=== PATIENT | female | born 2000 | race Two or more races ===

== ENCOUNTER 2024-01-03 10:58 | Emergency (ER) | payer OTHER ==
[~2024-01-03] VITALS: Ht 177.8 cm; Wt 81.2 kg
[~2024-01-03 10:58] MED LIST: NABUMETONE500 MG PO; PERCOCET 5/3251 TAB PO
[2024-01-03] MEDS ORDERED: PROTONIX20 MG (11:11)
[2024-01-03] MEDS ORDERED: PEPCID AC10 MG (11:11)
[2024-01-03] MEDS ORDERED: 0.9 % SODIUM CHLORIDE 1,000 ML IV STA (11:49)
[2024-01-03] MEDS ORDERED: FAMOtidine 10 MG/ML (4ML VIAL) IV PUSH ONE (12:15)
[2024-01-03 12:23] LABS: HEMATOCRIT 38.4 % (36.0-45.00); HEMOGLOBIN 13.1 g/dL (12.0-15.00); MEAN CELL VOLUME 89.6 fL (80.00-100.00); MEAN CORPUSCULAR HEMOGLOBIN 30.6 pg (27.00-32.0); MEAN CORPUSCULAR HGB CONC 34.2 g/dl (32.0-36.0); PLATELET COUNT 192 K/uL (150-450); RED BLOOD COUNT 4.28 M/uL (4.00-6.00); RED CELL DISTRIBUTION WIDTH 12.9 % (11.5-14.5)
[2024-01-03 13:15] LABS: CALCIUM 9.4 mg/dL (8.5-10.1); CREATININE SERUM 0.9 mg/dL (0.55-1.02); GFR 77.59; POTASSIUM 4.32 mEq/L (3.5-5.1)
== END 2024-01-03 17:32 | disposition home or self-care (01) ==
LOC: ER 10:59
PROVIDERS: General Practice
DX: K52.89 Other specified noninfective gastroenteritis and colitis (principal)